=== PATIENT | male | born 1955 | race Caucasian/White ===

== ENCOUNTER 2020-10-14 08:50 | Day surgery (SDC) | payer BC ==
[2020-10-12 14:31] LABS: CORONAVIRUS COVID-19 NAA NEGATIVE (NEGATIVE)
[~2020-10-14 08:50] MED LIST: Midazolam 1 MG/ML 2 ML SDV ONE; Propofol 200 MG/20 ML SDV ONE; Sodium Chloride 0.9% 10 ML Syringe FLUSH PRN
[2020-10-14] MEDS: Lactated Ringers 1,000 ML IV SCH (09:41)
[2020-10-14] MEDS ORDERED: Propofol 200 MG/20 ML SDV ONE ×2 (09:50→10:00)
--- NOTE | 2020-10-14 09:50 | PCM.HPR ---
H & P Addendum review - H & P Addendum Review Date of Original H & P: 09/21/20 Date Reviewed: 10/14/20 Time Reviewed: 09:49 Patient was Examined: No Changes
[2020-10-14] MEDS ORDERED: Midazolam 1 MG/ML 2 ML SDV ONE (10:00)
--- NOTE | 2020-10-14 10:27 | PCM.OPNOTE ---
- General Post-Op/Procedure Note Date of Surgery/Procedure: 10/14/20 Operative Procedure(s): Colonoscopy with Polypectomy Findings: Hep FL Polyp Pre Op Diagnosis: Hx Polyps Post-Op Diagnosis: Same Anesthesia Technique: MAC Primary Surgeon: Neo Banegas Anesthesia Provider: Danay Hoffmann Complications: None Condition: Good
--- NOTE | 2020-10-14 12:14 | OR ---
Date of Procedure: 10/14/2020 PREOPERATIVE DIAGNOSIS: History of colon polyps. POSTOPERATIVE DIAGNOSIS: Colon polyp. PROCEDURE: Colonoscopy with polypectomy. ANESTHESIA: MAC. PROCEDURE IN DETAIL: Patient was brought to procedure room where he was placed on his left side and IV sedation administered. Digital rectal exam was performed, which was normal. Colonoscope was inserted and advanced to the level of the cecum with minimal difficulty getting through the ascending colon. I reached the cecum which was confirmed by identifying the appendiceal lumen and ileocecal valve. Prep was good and surfaces were well visualized. Upon withdrawing the scope, the ascending colon was normal. At the hepatic flexure, there was a 6-mm sessile polyp, removed with a cautery snare and retrieved in the polyp trap. The remaining transverse and descending colon were normal. Sigmoid colon and rectum were normal. Retroflexion was normal. Air was removed and the scope withdrawn. Patient tolerated the procedure well and returned to recovery in stable condition. The patient will be contacted with the pathology report when it returns. Recommend that he undergo routine surveillance colonoscopy again in 5 years. RUFINO CAIN MD /[id number]
[2020-10-14 15:23] VITALS: BP 144/77; PULSE 72
== END 2020-10-14 11:37 | disposition home or self-care (01) ==
LOC: LL.SDS 08:50
PROVIDERS: ATTEND Surgery
DX: Z12.11 Encounter for screening for malignant neoplasm of colon (principal); D12.3 Benign neoplasm of transverse colon; I10 Essential (primary) hypertension; E78.5 Hyperlipidemia, unspecified; E10.9 Type 1 diabetes mellitus without complications; Z79.899 Other long term (current) drug therapy; Z98.890 Other specified postprocedural states; Z01.812 Encounter for preprocedural laboratory examination; Z20.822 Contact with and (suspected) exposure to COVID-19
CPT/HCPCS: 00812; 82962; J2250; J2704; J7120; U0002